=== PATIENT | female | born 1990 | race Caucasian/White ===

== ENCOUNTER 2017-08-08 21:15 | Outpatient (CLI) | payer BC ==
[~2017-08-08] VITALS: Ht 157.5 cm; Wt 73.6 kg
[~2017-08-08 21:15] MED LIST: PERCOCET 325 MG1 TA2 PO; ULTRAM 50MG TAB50 MG PO
[2017-08-08 21:36] VITALS: TEMP 98
[2017-08-08] MEDS ORDERED: ZOLOFT 100MG100 MG PO (21:42)
[2017-08-08] MEDS ORDERED: PRENATAL1 TA7 PO (21:42)
[2017-08-08] MEDS ORDERED: VALTREX1 GM PO (21:43)
[2017-08-08 21:45] VITALS: BP 93/51; PULSE 92; TEMP 98
[2017-08-08 23:30] VITALS: BP 99/63; PULSE 74
[2017-08-09] VITALS: BP 107/71; PULSE 71
== END 2017-08-09 00:10 | disposition home or self-care (01) ==
LOC: LDRO 21:15 → LDR 21:25 → LDRO 08-09 00:10
DX: O62.9 Abnormality of forces of labor, unspecified (principal); Z3A.37 37 weeks gestation of pregnancy
CPT/HCPCS: OP

== ENCOUNTER 2017-08-20 07:33 | Inpatient (IN) | payer BC ==
[~2017-08-20] VITALS: Ht 157.5 cm; Wt 76.8 kg
[2017-08-20] VITALS (44 sets, daily range): BP systolic 90–138; BP diastolic 50–80; PULSE 75–123; TEMP 97.7–98.6
[~2017-08-20 07:33] MED LIST changes: +PRENATAL1 TA7 PO; +VALTREX1 GM PO; +ZOLOFT 100MG100 MG PO
[2017-08-20 08:48] LABS: BASO % 0.2 % (0.0-2.0); EOS % 0.3 % (0-4.0); GRAN # 9.2 (1.4-6.5); GRAN % 70.3 % (42.2-75.2); HEMATOCRIT 39.7 % (37.0-47.0); HEMOGLOBIN 13.7 g/dl (12.5-16.0); LYMPH % 22.7 % (20.0-51.0); MEAN CELL VOLUME 98 fl (80.0-100.0); MEAN CORPUSCULAR HEMOGLOBIN 34 pg (27.0-31.0); MEAN CORPUSCULAR HGB CONC 35 g/dl (33.0-37.0); MEAN PLATELET VOLUME 10.8 fl (7.4-10.4); MONO # 0.8 (0.1-0.6); PLATELET COUNT 198 K/mm3 (130-400); RED BLOOD COUNT 4.05 M/mm3 (4.10-5.30); WHITE BLOOD COUNT 13.1 K/mm3 (4.8-10.8)
[2017-08-21 03:00] VITALS: BP 112/70; PULSE 90; TEMP 98.2
[2017-08-21 07:42] VITALS: BP 108/50; PULSE 89; TEMP 98.1
[2017-08-21] MEDS ORDERED: IBU600 MG PO (08:06)
[2017-08-21 16:00] VITALS: BP 99/68; PULSE 99; TEMP 97.4
[2017-08-21 22:29] VITALS: BP 102/65; PULSE 97; TEMP 97.8
[2017-08-22 08:30] VITALS: BP 113/65; PULSE 96; TEMP 98.2
[2017-08-22] MEDS ORDERED: PERCOCET 325 MG1 TA2 PO (09:06)
== END 2017-08-22 14:15 | disposition home or self-care (01) | DRG 775 ==
LOC: LDRO 07:33 → LDR 07:35 → OB 21:15
PROVIDERS: Obstetrics & Gynecology
PROC: 10E0XZZ Delivery of Products of Conception, External Approach (ICD-10-PCS; principal; 2017-08-20)
PROC: 0HQ9XZZ Repair Perineum Skin, External Approach (ICD-10-PCS; 2017-08-20)
DX: O70.0 First degree perineal laceration during delivery (principal); O69.81X0 Labor and delivery complicated by cord around neck, without compression, not applicable or unspecified; Z3A.38 38 weeks gestation of pregnancy; Z37.0 Single live birth
CPT/HCPCS: J2590; J7120

== ENCOUNTER 2019-03-05 13:08 | Outpatient (CLI) | payer BC ==
[~2019-03-05] VITALS: Ht 157.5 cm; Wt 65.9 kg
[2019-03-05 12:50] VITALS: BP 101/58; PULSE 102; TEMP 98.1
[~2019-03-05 13:08] MED LIST changes: +IBU600 MG PO
[2019-03-05 13:20] VITALS: BP 101/58; PULSE 102; TEMP 98.1
[2019-03-05] MEDS ORDERED: LEXAPRO20 MG (13:28)
--- NOTE | 2019-03-05 13:40 | NUR ---
1250 PATIENT HERE FOR COMPLAINTS OF LEAKING FLUID. YESTERDAY AND TODAY. NO CONTRACTIONS NOTED. VOMITING YESTERDAY. EFM ON FHT 148 GOOD MOVEMENT NOTED AND ACCELERATION SNOTED. BABY VERY ACTIVE. ASSESSMENT COMPLETED. DENIES NEEDS. AMNIOTRACE NEGATIVE AMNIOSURE DONE ALSO AND SENT TO LAB. DR KONG AT BEDSIDE.
[2019-03-05 13:46] VITALS: BP 98/53; PULSE 96
[2019-03-05 14:07] VITALS: BP 897/52; PULSE 90
--- NOTE | 2019-03-05 14:08 | NUR ---
AMNIOSURE NEGATIVE. DR KONG UPDATED AT THIS TIME AND ORDERS TO DISMISS PATIENT TO HOME, MAY RETURN TO WORK. DISCHARGE INSTRUCTIONS GIVEN WITH VERBAL UNDERSRANDING NOTED. DENIES NEEDS
== END 2019-03-05 14:15 | disposition home or self-care (01) ==
LOC: LDRO 13:08 → LDR 13:08 → LDRO 14:15
DX: Z34.92 Encounter for supervision of normal pregnancy, unspecified, second trimester (principal); Z3A.26 26 weeks gestation of pregnancy
CPT/HCPCS: OP

== ENCOUNTER 2019-04-05 11:00 | Outpatient (CLI) | payer BC ==
[~2019-04-05] VITALS: Ht 157.5 cm; Wt 72.7 kg
[2019-04-05 11:00] VITALS: BP 133/80; PULSE 104; TEMP 97.2
[~2019-04-05 11:00] MED LIST changes: +LEXAPRO20 MG
[2019-04-05 12:00] VITALS: BP 109/54; PULSE 90; TEMP 98.1
[2019-04-05 12:24] VITALS: BP 133/80; PULSE 104; TEMP 97.2
[2019-04-05 12:32] LABS: HEMOGLOBIN 11.9 g/dl (12.5-16.0); MEAN CELL VOLUME 99 fl (80.0-100.0); MEAN CORPUSCULAR HEMOGLOBIN 33 pg (27.0-31.0); MEAN CORPUSCULAR HGB CONC 34 g/dl (33.0-37.0); MEAN PLATELET VOLUME 9.9 fl (7.4-10.4); PLATELET COUNT 151 K/mm3 (130-400); RED BLOOD COUNT 3.59 M/mm3 (4.10-5.30); REDCELL DISTRIBUTION WIDTH-CV 13.1 % (11.5-14.5)
[2019-04-05 12:33] LABS: HEMATOCRIT 35.5 % (37.0-47.0)
--- NOTE | 2019-04-05 12:34 | NUR ---
1100 PATIENT HERE FOR COMPLAINTS OF CONTRACTION PAIN IN LOWER BACK. EFM ON FHT 120 BABY VERY ACTIVE. PATIENT TEARFUL WITH COMPLAINTS OF PAINS. SVE 2-360/-2. DR KONG CALLED. ORDERS TO IVF LR BOLUS. BRETHINE 0.25 SQ IN RIGHT UPPER ARM. BETAMETHASONE 12 MG IM IN RIGHT BUTTOCKS. PATIENT TOLERATES WELL.
[2019-04-05 12:37] LABS: PH 7 (5-8); SQUAMOUS EPITHELIAL 0-2 /hpf; URINE APPEARANCE Clear; URINE BACTERIA Rare /hpf; URINE BILIRUBIN Negative (NEGATIVE); URINE BLOOD Negative (NEGATIVE); URINE COLOR Straw; URINE GLUCOSE 3+ (NEGATIVE); URINE KETONE Negative (NEGATIVE); URINE LEUKOCYTE ESTERASE Negative (NEGATIVE); URINE NITRATE Negative (NEGATIVE); URINE PROTEIN(semi-quant) Negative (NEGATIVE); URINE RBC 0-2 /hpf; URINE UROBILINOGEN Negative (NEGATIVE); URINE WBC 0-2 /hpf
[2019-04-05 12:41] LABS: COLLECTION METHOD CLEAN CATCH
[2019-04-05 13:00] VITALS: BP 105/58; PULSE 78
--- NOTE | 2019-04-05 13:17 | NUR ---
1200 PATIENT STATES SHE IS MUCH MORE COMFORTABLE AT THIS TIME. DR KONG AT BEDSIDE TO DISCUSS OPTIONS WITH PATIENT AND PALPATES ABDOMEN. 1300 LR#2 FINISHED. ALL DISCHARGE INSTRUCTIONS GIVEN TO PATIENT AND WITH VERBAL UNDERESTANDING. DENIES NEEDS. FHR 120 BABY VERY ACTIVE. IV DC'D.
== END 2019-04-05 13:15 | disposition home or self-care (01) ==
LOC: LDRO 11:00 → LDR 12:05 → LDRO 13:15 → LDR 13:15
PROVIDERS: Obstetrics & Gynecology
DX: O62.9 Abnormality of forces of labor, unspecified (principal); Z3A.31 31 weeks gestation of pregnancy
CPT/HCPCS: OP; J0702; J3105; J7120

== ENCOUNTER 2019-05-15 19:15 | Inpatient (IN) | payer BC ==
[~2019-05-15] VITALS: Ht 157.5 cm; Wt 77.3 kg
[2019-05-15] VITALS (19 sets, daily range): BP systolic 91–137; BP diastolic 54–78; PULSE 68–129; TEMP 98.1–98.2
[2019-05-15] MEDS ORDERED: ZANTAC 7575 MG PO (19:48)
[2019-05-15 19:54] LABS: BASO % 0.2 % (0.0-2.0); EOS # 0.1 (0.0-0.7); EOS % 0.9 % (0-4.0); GRAN # 8.7 (1.4-6.5); LYMPH # 3.1 (1.2-3.4); LYMPH % 24.2 % (20.0-51.0); MEAN CELL VOLUME 97 fl (80.0-100.0); MEAN CORPUSCULAR HEMOGLOBIN 33 pg (27.0-31.0); MEAN CORPUSCULAR HGB CONC 34 g/dl (33.0-37.0); MONO # 0.7 (0.1-0.6); MONO % 5.4 % (1.7-9.3); PLATELET COUNT 215 K/mm3 (130-400); REDCELL DISTRIBUTION WIDTH-CV 13.2 % (11.5-14.5)
--- NOTE | 2019-05-15 20:33 | NUR ---
1913 PATIENT HERE WITH COMPLAINTS OF LARGE GUSH OF FLUID AT AROUND 1800. CLEAR FLUID NOTED. ASSESSMENT COMPLETED. EFM ON FHT 130 BABY VERY ACTIVE. CONTRACTIONS REGULAR. IV STARTED IN LEFT HAND LR WIDE OPEN FOR BOLUS. Osbaldo RICHTER CRNA CALLED FOR EPIDURAL PLACEMENT.
--- NOTE | 2019-05-15 20:43 | NUR ---
1939 PATIENT SITS UP ON EDGE OF BED FOR EPIDURAL PLACEMENT. Osbaldo RICHTER CRNA AT BEDSIDE. PATIENT TOLERATES WELL. SEE Osbaldo RICHTER [employer] ROLLER OPERATOR NOTES FOR QUESTIONS.
--- NOTE | 2019-05-15 20:46 | NUR ---
KNIGHT PLACED AT THIS TIME.
--- NOTE | 2019-05-15 20:47 | NUR ---
REPORT GIVEN TO Genaro CINTRON RN TO ASSUME CARE AT THIS TIME.
--- NOTE | 2019-05-15 23:06 | NUR ---
2219 BABY BOY BORN VIA VACUUM BY DR WINTER. CORD CLAMPED AND CUT BY . AND TO MOMS CHEST. AND THEN BABY TO [facility] FOR CLOSER OBSERVATION. PLACENTA DELIVERED AT [address] WINTER. PITOCIN STARTED AT 333/ HR. FUNDUS MASSAGED FOR MODERATE AMOUNT OF BLEEDING NOTED. SMALL REPAIR DONE BY DR WINTER. PATIENT TOLERATES WELL. MODERATE AMOUNT FREE FLOW BLEEDING NOTED. FUNDUS MASSAGED TIL FIRM. 2229 METHERGINE 0.2 MG IM IN LEFT THIGH AT THIS TIME PER DR WINTER. FUNDUS FIRM AT THIS TIME.
[2019-05-16 04:15] VITALS: BP 115/70; PULSE 80; TEMP 98.6
[2019-05-16] MEDS ORDERED: MOTRIN 800800 MG/TAB PO (04:45)
[2019-05-16] MEDS ORDERED: PERCOCET 325 MG1 TA2 PO (04:45)
== END 2019-05-16 06:20 | disposition home or self-care (01) | DRG 806 ==
LOC: LDR 19:15 → OB 23:54
PROVIDERS: Obstetrics & Gynecology; ADMIT Obstetrics & Gynecology
PROC: 10D07Z6 Extraction of Products of Conception, Vacuum, Via Natural or Artificial Opening (ICD-10-PCS; principal; 2019-05-15)
PROC: 0UQGXZZ Repair Vagina, External Approach (ICD-10-PCS; 2019-05-15)
DX: O42.92 Full-term premature rupture of membranes, unspecified as to length of time between rupture and onset of labor (principal); O71.4 Obstetric high vaginal laceration alone; Z37.0 Single live birth; O98.513 Other viral diseases complicating pregnancy, third trimester; B00.89 Other herpesviral infection; O76 Abnormality in fetal heart rate and rhythm complicating labor and delivery; O69.2XX0 Labor and delivery complicated by other cord entanglement, with compression, not applicable or unspecified; Z3A.37 37 weeks gestation of pregnancy
CPT/HCPCS: J2210; J2405; J2590; J2795; J7120

== ENCOUNTER 2019-06-14 14:51 | Emergency (ER) | payer BC ==
[~2019-06-14] VITALS: Ht 157.5 cm; Wt 70.5 kg
[~2019-06-14 14:51] MED LIST changes: +MOTRIN 800800 MG/TAB PO; +ZANTAC 7575 MG PO
[2019-06-14 14:58] VITALS: BP 121/78
[2019-06-14] MEDS ORDERED: ADDERALL XR20 MG PO (14:58)
[2019-06-14 15:38] LABS: COLLECTION METHOD CATHETER
[2019-06-14 15:49] LABS: BASO % 0.5 % (0.0-2.0); EOS # 0.1 (0.0-0.7); EOS % 1.2 % (0-4.0); GRAN # 4.1 (1.4-6.5); GRAN % 54.4 % (42.2-75.2); HEMATOCRIT 43.1 % (37.0-47.0); HEMOGLOBIN 14.6 g/dl (12.5-16.0); LYMPH # 2.9 (1.2-3.4); LYMPH % 39.2 % (20.0-51.0); MEAN CELL VOLUME 95 fl (80.0-100.0); MEAN CORPUSCULAR HEMOGLOBIN 32 pg (27.0-31.0); MEAN CORPUSCULAR HGB CONC 34 g/dl (33.0-37.0); MEAN PLATELET VOLUME 9.9 fl (7.4-10.4); MONO # 0.3 (0.1-0.6); MONO % 4.6 % (1.7-9.3); PLATELET COUNT 221 K/mm3 (130-400); RED BLOOD COUNT 4.55 M/mm3 (4.10-5.30); REDCELL DISTRIBUTION WIDTH-CV 12.4 % (11.5-14.5)
[2019-06-14 15:58] LABS: PH 5 (5-8); SQUAMOUS EPITHELIAL None Seen /hpf; URINE APPEARANCE Hazy; URINE BACTERIA None Seen /hpf; URINE BILIRUBIN Negative (NEGATIVE); URINE BLOOD 3+ (NEGATIVE); URINE COLOR Yellow; URINE GLUCOSE Negative (NEGATIVE); URINE KETONE 1+ (NEGATIVE); URINE LEUKOCYTE ESTERASE Negative (NEGATIVE); URINE NITRATE Negative (NEGATIVE); URINE PROTEIN(semi-quant) 1+ (NEGATIVE); URINE RBC 20-50 /hpf; URINE UROBILINOGEN Negative (NEGATIVE)
[2019-06-14 16:01] LABS: ALBUMIN 4.3 gm/dL (3.5-5.0); BILIRUBIN,TOTAL 0.5 mg/dL (0.0-1.0); CALCIUM 9.3 mg/dL (8.4-10.2); CREATININE, serum 0.64 (0.52-1.25); POTASSIUM 3.9 mmol/L (3.4-5.0); TOTAL PROTEIN 7.8 gm/dL (6.4-8.2)
[2019-06-14 17:23] VITALS: PULSE 86; TEMP 98
== END 2019-06-14 17:21 | disposition home or self-care (01) ==
LOC: COL.ER 14:51
PROVIDERS: Physician Assistant
DX: N93.9 Abnormal uterine and vaginal bleeding, unspecified (principal)
CPT/HCPCS: J1885; J7030